=== PATIENT | female | born 1975 | race Caucasian/White ===

== ENCOUNTER → 2016-10-19 | Outpatient (CLI) | payer BC | LOC: CT 10:15 | DX: R10.32 Left lower quadrant pain (principal) | CPT/HCPCS: J7050; Q9962 ==

== ENCOUNTER 2021-02-25 22:02 | Emergency (ER) | payer BC ==
[~2021-02-25 22:02] MED LIST changes: -ASPIRIN CHEWABL81 MG PO; -DECADRON6 MG PO
[2021-02-25 23:03] LABS: HEMOGLOBIN 15.5 gm/dl (12.3-15.3); RED BLOOD COUNT 4.64 M/UL (4.00-5.10); WHITE BLOOD COUNT 8.3 K/UL (4.5-11.0)
[2021-02-25 23:12] LABS: BUN/CREATININE RATIO 8 (0-10)
[2021-02-26] MEDS ORDERED: DECADRON6 MG PO (00:52)
[2021-02-26] MEDS ORDERED: ASPIRIN CHEWABL81 MG PO (00:52)
== END 2021-02-26 01:06 | disposition home or self-care (01) ==
LOC: ER1 22:02
PROVIDERS: Family Medicine
DX: Z23 Encounter for immunization (principal); U07.1 COVID-19; I10 Essential (primary) hypertension
CPT/HCPCS: 80053; 83615; 85025; 86140; 99284; M0243

== ENCOUNTER → 2021-02-25 | Outpatient (CLI) | payer OTHER ==
[~2021-02-25] MED LIST: ASPIRIN CHEWABL81 MG PO; AUGMENTIN 875-1 EACH PO; BACTROBAN OINT22 GM EXT; DECADRON6 MG PO
== END ==
LOC: GENOP 19:47
DX: U07.1 COVID-19 (principal)
CPT/HCPCS: U0002